=== PATIENT | male | born 1930 | race Caucasian/White ===

== ENCOUNTER 2020-04-21 17:10 | Inpatient (IN) | payer OTHER, MEDICARE, SELFPAY ==
[~2020-04-21] VITALS: Ht 165.1 cm; Wt 45.5 kg
[~2020-04-21 17:10] MED LIST: ALLO100T PO; DONE10TA44 PO; FURO-150 PO; LEVO25TA2 PO; MECL25TA3 PO; MEMA28CA PO; SIMV20TA2 PO
--- NOTE | 2020-04-21 17:13 | NUR ---
Placed in room 05 . Placed on desktop publishing specialist, blood pressure machine and pulse oximeter. To gown for exam. Side rails up.
[2020-04-21] MEDS ORDERED: NS 500 ML IV ONE ×2 (17:15→19:30)
[2020-04-21 17:16] VITALS: BP_SYST 141
--- NOTE | 2020-04-21 17:20 | NUR ---
#20 gauge angiocath placed to R forearm. Use of asceptic technique. Opsite placed over site. Blood return noted. Blood for lab drawn from site. Flushed with 10 mL of normal saline. No evidence of infiltration noted. Patient tolerated well.
--- NOTE | 2020-04-21 17:20 | NUR ---
EKG done and given to
--- NOTE | 2020-04-21 17:20 | NUR ---
Patient AAO x 0 (nonverbal) BIB BLS from [facility] with c/o poor oral intake and generalized weakness. Patient has h/o CA, CABG x 3, atrial fibrillation, low back pain, and hypothyroidism. He appears malnourished with bruising and dried skin to bilateral upper extremities. Even chest rise and fall with respirations. Will continue to monitor.
--- NOTE | 2020-04-21 17:40 | NUR ---
hyperbaric technologist at bedside for portable xray.
[2020-04-21 17:53] LABS: BASOPHILS % (AUTO) 0.4 % (0.0-2.0); EOSINOPHILS % (AUTO) 0.1 % (0.0-4.0); HEMATOCRIT 45.3 % (36-54); HEMOGLOBIN 14.6 g/dL (14.0-18.0); LYMPHOCYTES # (AUTO) 1.2 K/uL (1.0-5.5); LYMPHOCYTES % (AUTO) 13.3 % (20.5-51.5); MEAN CORPUSCULAR HEMOGLOBIN 32 pg (27-31); MEAN CORPUSCULAR HGB CONC 32 % (32-36); MEAN CORPUSCULAR VOLUME 98 fL (79.0-98.0); MONOCYTES # (AUTO) 0.5 K/uL (0.0-1.0); MONOCYTES % (AUTO) 5.7 % (1.7-9.3); NEUTROPHILS % (AUTO) 80.5 % (40.0-70.0); PLATELET COUNT (AUTO) 129 K/uL (130-430); RED BLOOD CELL COUNT(AUTO) 4.61 MIL/uL (4.2-6.2); RED CELL DISTRIBUTION WIDTH 18.5 % (9.0-15.0); WHITE BLOOD COUNT (AUTO) 8.7 K/uL (4.8-10.8)
[2020-04-21] MEDS ORDERED: ASPI-1155 PO (18:03)
[2020-04-21] MEDS ORDERED: HAL1 PO (18:03)
[2020-04-21] MEDS ORDERED: NITSL SL (18:03)
[2020-04-21] MEDS ORDERED: KETO60CR2 TP (18:03)
[2020-04-21] MEDS ORDERED: QUET50TA PO (18:03)
[2020-04-21] MEDS ORDERED: CLOP75TA32 PO (18:03)
--- NOTE | 2020-04-21 18:04 | NUR ---
Medication reconciliation completed with information provided by Board and care. . Any prior medication reconciliation on file was reviewed and corrected.
[2020-04-21 18:11] LABS: INR 1.1 (0.80-1.20); PROTHROMBIN TIME 11.6 SECS (9.5-12.5)
--- NOTE | 2020-04-21 18:12 | NUR ---
NS 500ml currently infusing per MD order.
[2020-04-21] MEDS ORDERED: ASPIRIN 325 MG TABLET PO ONE (19:00)
--- NOTE | 2020-04-21 19:05 | NUR ---
ua collected via straight cath. Sent to the lab
--- NOTE | 2020-04-21 19:11 | NUR ---
Care endorsed to Makalya CONDON.
[2020-04-21] MEDS ORDERED: ASPIRIN 300 MG/SUPP.RECT SUPP RC ONE (19:15)
--- NOTE | 2020-04-21 19:15 | NUR ---
CRITICAL LAB REPORTING - SODIUM 164, CHLORIDE 122, BUN 111, CREATININE 3.14
[2020-04-21 19:22] LABS: ANION GAP 11 (5-15); CALCIUM 8.5 mg/dL (8.4-11.0); CHLORIDE 122 mmol/L (98-107); GLUCOSE 108 mg/dL (70-99); POTASSIUM 4.3 mmol/L (3.5-5.1); SODIUM SERUM 164 mmol/L (136-145)
[2020-04-21 19:23] LABS: ALANINE AMINOTRANSFERASE 25 U/L (12-78); ALBUMIN 3.4 g/dL (3.4-4.8); ASPARTATE AMINOTRANSFERASE 17 U/L (10-37); CREATININE 3.14 mg/dL (0.55-1.30); TOTAL BILIRUBIN 0.6 mg/dL (0.0-1.0); UREA NITROGEN, BLOOD 111 mg/dL (8-21)
--- NOTE | 2020-04-21 19:29 | NUR ---
RECEIVED ADMIT ORDERS FROM DR. FRANK.
[2020-04-21] MEDS ORDERED: D5W 1,000 ML IV ONE (19:30)
--- NOTE | 2020-04-21 19:33 | NUR ---
DR. FRANK AT BEDSIDE WITH PATIENT.
--- NOTE | 2020-04-21 19:35 | NUR ---
Patient will be admitted to care of DR. FRANK. Admitted to TELEMETRY unit. Will go to room 114B. Belongings list completed. Complete and up to date summary report printed. SBAR report to be given at bedside with opportunity for questions.
--- NOTE | 2020-04-21 19:40 | NUR ---
Dr. Morgan speaking to regarding code status. put patient as DNR. MD signed Code status form. Placed in chart.
[2020-04-21 19:45] LABS: BILIRUBIN,URINE 2+ (NEGATIVE); BLOOD, URINE 2+ (NEGATIVE); COLOR,URINE YELLOW (YELLOW); GLUCOSE,URINE NEGATIVE (NEGATIVE); KETONES,URINE TRACE (NEGATIVE); LEUKOCYTE ESTERASE ,URINE NEGATIVE (NEGATIVE); NITRITE, URINE NEGATIVE (NEGATIVE); PROTEIN URINE TRACE (NEGATIVE); UROBILINOGEN,URINE 0.2 (0.2-1.0)
[2020-04-21] MEDS ORDERED: D5W 1,000 ML IV SCH (19:45)
[2020-04-21 19:49] LABS: CLARITY/URINE HAZY (CLEAR)
--- NOTE | 2020-04-21 19:52 | NUR ---
REQUESTED TELE BED FROM TAURUS GAGNON.
[2020-04-21 19:55] LABS: BACTERIA,URINE FEW /HPF (None Seen); URINE AMORPHOUS URATE 2+ /HPF (None Seen)
[2020-04-21 19:56] LABS: COARSE GRANULAR CASTS,URINE 0-10 /LPF (None Seen); FINE GRANULAR CASTS,URINE 0-10 /LPF (None Seen); MUCUS,URINE 1+ /LPF (None Seen)
--- NOTE | 2020-04-21 20:22 | NUR ---
Patient's oral mucousa and lips dry. Oral care performed and petroleum jelly applied to lips
--- NOTE | 2020-04-21 20:52 | NUR ---
Patient resting comfortably. VSS
--- NOTE | 2020-04-21 21:25 | NUR ---
Family at bedside. Available to answer questions.
[2020-04-21] MEDS: 0.45% NACL 1,000 ML IV SCH (22:00)
--- NOTE | 2020-04-21 22:23 | NUR ---
NEW ORDERS BY DR FRANK CBC, CMP, BNP, TROPONIN AT 0500 TOMORROW AND TYLENOL 650 MG SUPPOSITORY Q 6HP FOR MILD PAIN AND FEVER
[2020-04-21] MEDS ORDERED: ACETAMINOPHEN 650 MG SUPP.RECT RC PRN (22:30)
--- NOTE | 2020-04-21 23:58 | NUR ---
Patient resting quietly. No acute distress noted. Vital signs within normal range.
[2020-04-22] VITALS (7 sets, daily range): BP systolic 97–129
--- NOTE | 2020-04-22 01:01 | NUR ---
Transfer to TELEMETRY via ACLS protocol. Licensed nurse present. IV present no signs or symptoms of infiltration.
--- NOTE | 2020-04-22 01:10 | NUR ---
ADMISSION: The patient, ESTEBAN BLEVINS, 89 y/o, M admitted by ESDRAS FRANK MD,WITH THE DIAGNOSIS OF DEHYDRATION AND ACUTE RENAL FAILURE TO ROOM 114 B . PRIMARY RN AT BEDSIDE .
[2020-04-22] MEDS: 0.45% NACL 1,000 ML IV SCH (03:33)
--- NOTE | 2020-04-22 03:54 | NUR ---
Consultation Paged Reason for Consultation:Renal Failure Was consult called: Y Person who was notified: Kena Consulting Physician: Dr. Sinha Ordering Physician: Dr. Morgan
[2020-04-22 06:10] LABS: BASOPHILS % (AUTO) 0.4 % (0.0-2.0); EOSINOPHILS % (AUTO) 0.2 % (0.0-4.0); HEMATOCRIT 34.6 % (36-54); HEMOGLOBIN 11.6 g/dL (14.0-18.0); LYMPHOCYTES # (AUTO) 1.5 K/uL (1.0-5.5); LYMPHOCYTES % (AUTO) 17.8 % (20.5-51.5); MEAN CORPUSCULAR HEMOGLOBIN 32 pg (27-31); MEAN CORPUSCULAR HGB CONC 34 % (32-36); MEAN CORPUSCULAR VOLUME 96 fL (79.0-98.0); MONOCYTES # (AUTO) 0.6 K/uL (0.0-1.0); MONOCYTES % (AUTO) 7.4 % (1.7-9.3); NEUTROPHILS # (AUTO) 6.2 K/uL (1.8-7.7); NEUTROPHILS % (AUTO) 74.2 % (40.0-70.0); PLATELET COUNT (AUTO) 111 K/uL (130-430); RED CELL DISTRIBUTION WIDTH 17.6 % (9.0-15.0); WHITE BLOOD COUNT (AUTO) 8.4 K/uL (4.8-10.8)
[2020-04-22 06:39] LABS: ALANINE AMINOTRANSFERASE 13 U/L (12-78); ALBUMIN 2.5 g/dL (3.4-4.8); ANION GAP 8 (5-15); ASPARTATE AMINOTRANSFERASE 29 U/L (10-37); CALCIUM 7.8 mg/dL (8.4-11.0); CHLORIDE 113 mmol/L (98-107); CREATININE 2.41 mg/dL (0.55-1.30); POTASSIUM 3.5 mmol/L (3.5-5.1); SODIUM SERUM 147 mmol/L (136-145); UREA NITROGEN, BLOOD 88 mg/dL (8-21)
[2020-04-22 07:43] LABS: GLUCOSE 47 mg/dL (70-99)
[2020-04-22] MEDS ORDERED: DEXTROSE 50% JECT 50 ML DISP.SYRIN IVP ONE (07:45)
--- NOTE | 2020-04-22 08:00 | NUR ---
pt sleeping in bed,confused,sinus milton hr 50's,on O2 2L/NC,sat 100%,NPO,IVF continue infusing, critical glucose 47 per am lab, came and notified,give 1 amp D50,then changed IVF to D51/2 NS @ 125cc/hr,total care provided,continue to monitor pt.
[2020-04-22] MEDS: D5/0.45 NS 1,000 ML IV SCH ×3 (08:16→20:46)
--- NOTE | 2020-04-22 08:43 | NUR ---
Nutrition Update Aravind scale 12 noted. Pt admitted for dehydration, acute renal failure. Diet: N/A BMI: 16.7 kg/m2 RD to follow per nutrition care standards.
--- NOTE | 2020-04-22 10:00 | NUR ---
rechekced blood sugar 131 mg/dl,incontinent of urine,pericare provided.
--- NOTE | 2020-04-22 11:54 | NUR ---
Case mgt: Rec'd call from Dr. Morgan--he indicates he s/w pt's about terminal illness and hospice--he said [facility] is agreeable to pt going back to [facility] assisted living on hospice---social media analyst Ayn will f/u with hospice--anticipate discharge tomorrow once hospice meets with . LAUREANO CONDON
--- NOTE | 2020-04-22 12:00 | NUR ---
vss,IVF continue infusing,pt more awake and remains confused,hourly rounds made,safety maintained.
--- NOTE | 2020-04-22 12:17 | NUR ---
NOTES: RADAMES was referred by for hospice eval. FREIGHT FLAGMAN phoned multiple times @ [phone], no answer. FREIGHT FLAGMAN also left a message for son, Michael @ [phone] requesting for call back. FREIGHT FLAGMAN will follow up. Addendum: 04/22/20 at 1412 by Rigoberto Canseco FREIGHT FLAGMAN FREIGHT FLAGMAN spoke with (p: [phone]) who stated she would like to use the hospice agency that [facility] recommends. FREIGHT FLAGMAN phoned [facility] and was referred to [facility]. FREIGHT FLAGMAN phoned [facility] and spoke with Antonella @ [phone] (f: [phone]). Per Antonella, she has spoken with and is only available to meet with her for signatures tomorrow 04/23. [facility] director of product marketing will also do a chart review tomorrow at 11am and will also arrange transportation back to [facility].
--- NOTE | 2020-04-22 14:00 | NUR ---
wound picture taken for left hip wound,both arms bruises,redness in sacrum,right heel nonblanchable redness left foot bruises and both feet toes thick nails.applied foam dressing in left hip wound,skin care provided repositioned every 2 hrs per pressure ulcer prevention.
--- NOTE | 2020-04-22 16:00 | NUR ---
pt sleeping with mouth breathin in bed,oral care provided,continue O2 2L/NC,keep NPO,HOB up 45 degrees per aspiration precaution.comfort are provided.
--- NOTE | 2020-04-22 18:30 | NUR ---
pt continue sleeping in bed,hr 54,O2 sat 100% on 2L/NC,will endorse report to shift supervisor film processing staff.
--- NOTE | 2020-04-22 19:20 | NUR ---
OPENING NOTE PATIENT RESPOND TO LIGHT STIMULUS, AOX0. NPO ORDERED AT THIS TIME. ON 2L OF OXYGEN VIA NASAL CANULA, PATIENT HAS NO SIGNS OF RESPIRATORY DISTRESS AND DISCOMFORT NOTED. IVF INFUSING WELL. REPOSITIONED PATIENT. [place] CARE DONE. BED LOCKED AND IN LOWEST POSITION. SAFETY AND ASPIRATION PRECAUTIONS IN PLACE. BED ALARM ON. WILL CONTINUE TO MONITOR PATIENT.
--- NOTE | 2020-04-22 21:05 | NUR ---
RN ROUNDS PATIENT HAS NO SIGNS OF RESPIRATORY DISTRESS AND DISCOMFORT NOTED. BREATHING EVEN AND UNLABORED. ON 2L OF OXYGEN VIA NASAL CANULA, TOLERATING WELL. REPOSITIONED PATIENT. SAFETY PRECAUTIONS IN PLACE. WILL CONTINUE TO MONITOR PATIENT
[2020-04-23] VITALS: BP_SYST 111
--- NOTE | 2020-04-23 00:05 | NUR ---
VITAL SIGNS VITAL SIGNS TAKEN AND WILL BE RECORDED. PATIENT RESPOND TO LIGHT STIMULUS. NO SIGNS OF RESPIRATORY DISTRESS NOTED. BREATHING EVEN AND UNLABORED. ON 2L OF OXYGEN VIA NASAL CANULA, TOLERATING WELL. O2 SATURATION OF 100%. IVF INFUSING WELL. REPOSITIONED PATIENT. SAFETY PRECAUTIONS IN PLACE. WILL CONTINUE TO MONITOR PATIENT
--- NOTE | 2020-04-23 02:03 | NUR ---
RN ROUNDS PATIENT HAS NO SIGNS OF RESPIRATORY DISTRESS AND DISCOMFORT NOTED. BREATHING EVEN AND UNLABORED. ON 2L OF OXYGEN VIA NASAL CANULA, TOLERATING WELL. IVF INFUSING WELL. SAFETY PRECAUTIONS IN PLACE. WILL CONTINUE TO MONITOR PATIENT
[2020-04-23] MEDS: D5/0.45 NS 1,000 ML IV SCH (04:07)
--- NOTE | 2020-04-23 04:20 | NUR ---
NEW IVF HUNG NEW IVF HUNG AT THIS TIME. PATIENT HAS NO SIGNS OF RESPIRATORY DISTRESS AND DISCOMFORT NOTED. BREATHING EVEN AND UNLABORED. ON 2L OF OXYGEN VIA NASAL CANULA, TOLERATING WELL. IVF INFUSING WELL. SAFETY PRECAUTIONS IN PLACE. WILL CONTINUE TO MONITOR PATIENT
[2020-04-23] MEDS ORDERED: METOPROLOL TARTRATE 5 MG/5 ML VIAL IVP ONE (06:15)
--- NOTE | 2020-04-23 06:20 | NUR ---
SPOKE WITH DR. VEENA BALLARD MADE AWARE THAT PATIENTS HEART RATE IS SUSTAINING AT 150 FOR THE LAST 15-25 MINS AFTER CLEANING THE PATIENT. MD AWARE THAT PATIENT IS NPO. GAVE NEW ORDER. WILL CARRY OUT
--- NOTE | 2020-04-23 06:30 | NUR ---
METOPROLOL 5MG IVP NOT GIVEN UPON RE ASSESSMENT AND RE CHECKING OF VITAL SIGNS, BP OF 106/58. HR OF 80, O2 SATURATION OF 100% ON 2L OF OXYGEN VIA NASAL CANULA. HEART RHYTHM OF SINUS RHYTHM WITH OCCASIONAL PAC's. (COPY OF THE HEART RHYTHM ON THE CHART). PATIENT HAS NO SIGNS OF RESPIRATORY DISTRESS AND DISCOMFORT NOTED. BREATHING EVEN AND UNLABORED. PATIENT CALM AT THIS TIME. IVF INFUSING WELL. WILL CONTINUE TO MONITOR PATIENT
[2020-04-23 06:33] VITALS: BP_SYST 106
[2020-04-23] MEDS ORDERED: METOPROLOL TARTRATE 5 MG/5 ML VIAL ONE (06:40)
--- NOTE | 2020-04-23 06:50 | NUR ---
CLOSING NOTE PATIENT ASLEEP AT THIS TIME. NO SIGNS OF RESPIRATORY DISTRESS AND DISCOMFORT NOTED. BREATHING EVEN AND UNLABORED. ON 2L OF OXYGEN VIA NASAL CANULA, TOLERATING WELL. IVF INFUSING WELL. BED LOCKED AND IN LOWEST POSITION. SAFETY PRECAUTIONS IN PLACE. ALL NEEDS MET THROUGHOUT THE SHIFT. VITAL SIGNS WITHIN NORMAL LIMITS. WILL CONTINUE TO MONITOR PATIENT UNTIL ENDORSE TO ONCOMING SHIFT NURSE FOR CONTINUITY OF CARE.
[2020-04-23 07:42] LABS: BASOPHILS % (AUTO) 0.2 % (0.0-2.0); EOSINOPHILS % (AUTO) 0.7 % (0.0-4.0); HEMOGLOBIN 11.3 g/dL (14.0-18.0); LYMPHOCYTES # (AUTO) 1.2 K/uL (1.0-5.5); LYMPHOCYTES % (AUTO) 18.9 % (20.5-51.5); MEAN CORPUSCULAR HEMOGLOBIN 32 pg (27-31); MEAN CORPUSCULAR HGB CONC 33 % (32-36); MEAN CORPUSCULAR VOLUME 96 fL (79.0-98.0); MONOCYTES # (AUTO) 0.3 K/uL (0.0-1.0); MONOCYTES % (AUTO) 5.2 % (1.7-9.3); NEUTROPHILS # (AUTO) 4.9 K/uL (1.8-7.7); PLATELET COUNT (AUTO) 92 K/uL (130-430); RED BLOOD CELL COUNT(AUTO) 3.53 MIL/uL (4.2-6.2); RED CELL DISTRIBUTION WIDTH 17.2 % (9.0-15.0); WHITE BLOOD COUNT (AUTO) 6.6 K/uL (4.8-10.8)
--- NOTE | 2020-04-23 07:59 | NUR ---
Initial notes In bed asleep, arousable. No acute distress noted. will continue to monitor
[2020-04-23 08:07] VITALS: BP_SYST 97
[2020-04-23 08:16] LABS: ANION GAP 4 (5-15); CALCIUM 7.2 mg/dL (8.4-11.0); CHLORIDE 111 mmol/L (98-107); CREATININE 1.65 mg/dL (0.55-1.30); GLUCOSE 142 mg/dL (70-99); POTASSIUM 3.3 mmol/L (3.5-5.1); SODIUM SERUM 143 mmol/L (136-145); UREA NITROGEN, BLOOD 58 mg/dL (8-21)
[2020-04-23 08:22] LABS: ALANINE AMINOTRANSFERASE 17 U/L (12-78); ALBUMIN 2.3 g/dL (3.4-4.8); ASPARTATE AMINOTRANSFERASE 23 U/L (10-37); TOTAL BILIRUBIN 0.6 mg/dL (0.0-1.0)
[2020-04-23] MEDS ORDERED: LEVOTHYROXINE SODIUM 0.05 MG TABLET PO ONE (09:00)
--- NOTE | 2020-04-23 10:12 | NUR ---
Notes Patient is awake now, removing his oxygen and IV site. has incontinent of urine. change and repositioned.
[2020-04-23] MEDS: ASPIRIN 81 MG TAB.CHEW PO SCH ×2 (10:30→10:32)
--- NOTE | 2020-04-23 10:30 | NUR ---
notes- patient refused to take his meds. offered patient water also but does not want to eat.
[2020-04-23 12:14] VITALS: BP_SYST 88
[2020-04-23 12:46] VITALS: BP_SYST 92
--- NOTE | 2020-04-23 12:53 | NUR ---
Notes Awake, refusing to eat. pulling out monitor. reorient patient. No distress noted.
--- NOTE | 2020-04-23 15:00 | NUR ---
Pain med charge entry specialist called Dr. Morgan Re: hospice nurse recommends to give patient pain meds before transport.
--- NOTE | 2020-04-23 15:49 | NUR ---
Notes Patient pulled his IV. Catheter intact
--- NOTE | 2020-04-23 16:07 | NUR ---
SS NOTES: SCIENTOLOGIST spoke with Antonella with [facility] (p: [phone]), pt is scheduled to be picked up at 5PM today. Tram CONDON informed.
--- NOTE | 2020-04-23 16:10 | NUR ---
HIGH ALERT NOTE: Called Dr. Morgan back [phone] identified within the medical roster to verify physician authenticity.
[2020-04-23] MEDS ORDERED: MORPHINE 2 MG/ML INJ. SYRINGE IM ONE (16:15)
[2020-04-23 16:43] VITALS: BP_SYST 91
--- NOTE | 2020-04-23 17:16 | NUR ---
D/C PT WITH HOSPICE VIA AMBULANCE. AWAKE AND CONFUSED. NO ACUTE DISTRESS NOTED. PAPER WORKS GIVEN TO AMBULANCE STAFF. NO MORE IVL. ALL BELONGINGS SENT (UPPER AND LOWER DENTURES AND POLO SHIRT)
[2020-04-23] MEDS ORDERED: QUEtiapine FUMARATE 25 MG TABLET PO SCH (21:00)
[2020-04-23] MEDS ORDERED: DONEPEZIL HCL 5 MG TABLET (ARICEPT) PO SCH (21:00)
[2020-04-24] MEDS ORDERED: LEVOTHYROXINE SODIUM 0.05 MG TABLET PO SCH (07:00)
== END 2020-04-23 17:36 | disposition home health service (06) | DRG 640 ==
LOC: SED 17:10 → STU 19:25
PROVIDERS: ADMIT Internal Medicine Cardiovascular Disease; ATTEND Internal Medicine Cardiovascular Disease
DX: E86.0 Dehydration (principal); E43 Unspecified severe protein-calorie malnutrition; N17.9 Acute kidney failure, unspecified; Z68.1 Body mass index [BMI] 19.9 or less, adult; N39.0 Urinary tract infection, site not specified; I24.9 Acute ischemic heart disease, unspecified; E03.9 Hypothyroidism, unspecified; E78.5 Hyperlipidemia, unspecified; I25.10 Atherosclerotic heart disease of native coronary artery without angina pectoris; F03.90 Unspecified dementia, unspecified severity, without behavioral disturbance, psychotic disturbance, mood disturbance, and anxiety; N18.2 Chronic kidney disease, stage 2 (mild); Z66 Do not resuscitate; Z20.828 Contact with and (suspected) exposure to other viral communicable diseases; Z74.01 Bed confinement status; Z79.02 Long term (current) use of antithrombotics/antiplatelets; Z79.82 Long term (current) use of aspirin; Z86.73 Personal history of transient ischemic attack (TIA), and cerebral infarction without residual deficits; Z79.899 Other long term (current) drug therapy; R62.7 Adult failure to thrive
CPT/HCPCS: 36415; 71045; 80053; 81000-TC; 82962; 83880; 84484; 85025; 85610-TC; 85730-TC; 87081; 93005; 96360; 96361; 99285; G0378; J2270; J3490; J7040; J7060